=== PATIENT | female | born 1985 | race Caucasian/White ===

== ENCOUNTER 2022-11-13 10:43 | Outpatient (CLI) | payer MEDICAID, SELFPAY ==
--- NOTE | 2022-11-13 10:58 | MR_ITS ---
WS: [id number] MRI HEAD WITH CONTRAST WITH ATTENTION TO THE INTERNAL AUDITORY CANALS TECHNIQUE: Sagittal T1, T2 axial, T2 axial flair, axial susceptibility weighted imaging, axial diffus ion weighted images, and coronal T2 images were obtained. Pre and post T1 axial and post T1 coronal i mages. ADC and FSPGR images. Post gadolinium images with attention to the internal auditory canals. A xial fiesta imaging. CLINICAL INFORMATION: vestibular Neuronitis COMPARISON: MRI 2015 FINDINGS: No evidence of restricted diffusion to suggest acute ischemia. Ventricular system and basal cisterns are patent. No suspicious intracranial signal abnormalities. Normal galvan-white differentiation. Julianna l posterior fossa. Normal vascular flow voids at the skull base. No extra axial fluid collections. No evidence of mass or mass effect. Paranasal sinuses and mastoid air cells well aerated. Normal underwriting sales representative ior nasopharynx and parapharyngeal fat. No hemosiderin on the susceptibly weighted images. Proximal 7th and 8th cranial nerves are normal in appearance. Normal trigeminal nerve root entry zones. No evidence of enhancing IAC or CP angle mass. Normal cavernous sinuses and Meckel's cave. No abnormal intracranial enhancement. Normal dural venous sinuses. Normal optic chiasm and pituitary infundibulum. Normal homogeneous pituitary enhancement. MR/MR iac's wo/w con* [id number] IMPRESSION: 1. No evidence of enhancing IAC or CP angle mass. Normal trigeminal nerve root entry zones. 2. No restricted diffusion to suggest acute ischemia. 3. Paranasal sinuses and mastoid air cells well aerated. 4. Normal posterior nasopharynx. 5. No abnormal intracranial enhancement. No suspicious intracranial signal abn ormalities.
== END 2022-11-13 10:44 | disposition home or self-care (01) ==
LOC: RAD 10:45
PROVIDERS: PCP Registered Nurse; Visit Provider Otolaryngology
DX: H81.20 Vestibular neuronitis, unspecified ear (principal)
CPT/HCPCS: 70553; A9577

== ENCOUNTER 2023-06-05 09:57 | Outpatient (CLI) | payer MEDICAID, SELFPAY ==
--- NOTE | 2023-06-05 10:00 | MM_ITS ---
WS: [email or web address] SCREENING DIGITAL TOMOSYNTHESIS MAMMOGRAM WITH CAD HISTORY: Z12.31 - Encounter for screening mammogram for malignant ... COMPARISON: None available. Bilateral CC and MLO with tomosynthesis views submitted. Synthetic mammography reviewed. Computer aid ed detection analyzed. Breast composition: There are scattered areas of fibroglandular density. No suspicious masses, microc alcifications or architectural distortion. IMPRESSION: MM/[place] [id number] BI-RADS: 1-Negative FOLLOW UP: 1 Year Follow-up
== END 2023-06-05 09:58 | disposition home or self-care (01) ==
LOC: MOBLMAM 09:58
PROVIDERS: PCP Registered Nurse; Visit Provider Nurse Practitioner Women's Health
DX: Z12.31 Encounter for screening mammogram for malignant neoplasm of breast (principal)
CPT/HCPCS: 77063; 77067

== ENCOUNTER 2024-07-06 09:36 | Outpatient (CLI) | payer OTHER, SELFPAY ==
--- NOTE | 2024-07-06 09:40 | MM_ITS ---
WS: [email or web address] BILATERAL SCREENING DIGITAL TOMOSYNTHESIS MAMMOGRAM WITH CAD HISTORY: Z12.31 - Encounter for screening mammogram for malignant ... COMPARISON: 06/05/2023 Bilateral CC and MLO views with tomosynthesis and synthetic mammography submitted. Computer aided det ection analyzed. Breast composition: There are scattered areas of fibroglandular density. No suspicious masses, microc alcifications or architectural distortion. MM/MM scr BI tomosynthesis [id number] IMPRESSION: BI-RADS: 1 - Negative. FOLLOW UP: 1 Year Follow-up
== END 2024-07-06 09:37 | disposition home or self-care (01) ==
LOC: MOBLMAM 09:36
PROVIDERS: PCP Nurse Practitioner Women's Health; Visit Provider Nurse Practitioner Women's Health
DX: Z12.31 Encounter for screening mammogram for malignant neoplasm of breast (principal)
CPT/HCPCS: 77063; 77067

== ENCOUNTER → 2025-06-09 12:13 | Outpatient (BNVA) | payer SELFPAY | PROVIDERS: PCP Nurse Practitioner Women's Health; Visit Provider Nurse Practitioner Women's Health | DX: E89.40 Asymptomatic postprocedural ovarian failure (principal); Z79.890 Hormone replacement therapy | CPT/HCPCS: 82306; 82670 ==

== ENCOUNTER → 2025-06-13 14:43 | Outpatient (BNVA) | payer SELFPAY | PROVIDERS: PCP Nurse Practitioner Women's Health; Visit Provider Nurse Practitioner Women's Health | DX: E89.40 Asymptomatic postprocedural ovarian failure (principal); Z79.890 Hormone replacement therapy | CPT/HCPCS: 82306; 82670 ==

== ENCOUNTER 2025-06-23 12:43 | Outpatient (CLI) | payer SELFPAY ==
--- NOTE | 2025-06-23 12:15 | US_ITS ---
WS: [email or web address] US transvaginal [id number] HISTORY: R10.20 - Pelvic and perineal pain unspecified side COMPARISON: None available. Status post hysterectomy. Uterus is not identified. No mass at the vaginal cuff identified. No free fluid in the pelvis. Neither ovary is identified. US/ transvaginal [id number] IMPRESSION: Status post complete hysterectomy. No abnormality noted in the pelvis.
--- NOTE | 2025-06-23 13:00 | XR_ITS ---
WS: [email or web address] DEXA (DUAL ENERGY X-RAY ABSORPTIOMETRY) Bone mineral density was performed using a [employer] machine. HISTORY: E89.40 - Asymptomatic postprocedural ovarian failure COMPARISON: None available. Lumbar spine BMD (L2-L4): 1.087 T score: -0.9 Z score: -1.8 Total hip BMD: Left: 0.987 g/cm2. T score: -0.2 Z score: -0.6 Right: 1.004 g/cm2. T score: 0.0 Z score: -0.5 XR/XR DEXA axial skeleton* [id number] IMPRESSION: NORMAL BONE MINERAL DENSITY based upon the WHO classification for females.
--- NOTE | 2025-06-23 13:40 | MM_ITS ---
WS: [email or web address] BILATERAL 3D TOMOSYNTHESIS DIGITAL SCREENING MAMMOGRAPHY WITH CAD CLINICAL INFORMATION: Z12.31 - Encounter for screening mammogram for malignant ... HISTORY: Screening mammogram. No current complaints. COMPARISON: 2023 TECHNIQUE: Bilateral CC and MLO views. FINDINGS: Scattered fibroglandular densities bilaterally. No suspicious focal mass, asymmetry, calcifications, or architectural distortion. No evidence of malignancy. MM/MM scr tomosynthesis [id number] IMPRESSION: DENSITY: There are scattered areas of fibroglandular density. BI-RADS: 1 - Negative. FOLLOW UP: 1 Year Follow-up Recommend return to annual screening mammography.
== END 2025-06-23 12:44 | disposition home or self-care (01) ==
PROVIDERS: PCP Nurse Practitioner Women's Health; Visit Provider Nurse Practitioner Women's Health
DX: Z12.31 Encounter for screening mammogram for malignant neoplasm of breast (principal); E89.40 Asymptomatic postprocedural ovarian failure; Z79.890 Hormone replacement therapy; R10.20 Pelvic and perineal pain unspecified side; G89.29 Other chronic pain; R92.323 Mammographic fibroglandular density, bilateral breasts; Z90.710 Acquired absence of both cervix and uterus
CPT/HCPCS: 76830; 77063; 77067; 77080